=== PATIENT | female | born 1955 | race Two or more races ===

== ENCOUNTER 2021-11-10 21:51 | Emergency (ER) | payer OTHER ==
[~2021-11-10] VITALS: Ht 165.1 cm; Wt 61.2 kg
[2021-11-10] MEDS ORDERED: ONDANSETRON 4 MG/2 ML VIAL IV ONE (22:45)
[2021-11-10] MEDS ORDERED: IV NORMAL SALINE 1000 ML BAG IV ONE (22:45)
[2021-11-10] MEDS ORDERED: ONDANSETRON 4 MG/2 ML VIAL ONE (22:47)
--- NOTE | 2021-11-10 22:49 | NUR ---
Patient out of unit for ct scan via [place].
[2021-11-10 22:54] LABS: HEMATOCRIT 33.3 % (31.2-41.9); MEAN CORPUSCULAR HEMOGLOBIN 29.3 uug (24.7-32.8); MEAN CORPUSCULAR VOLUME 85.4 fL (75.5-95.3); PLATELET COUNT (AUTO) 265 K/uL (179-408)
[2021-11-10 23:00] LABS: CARBON DIOXIDE 24 mmol/L (21-32); CHLORIDE 98 mmol/L (98-107); CREATININE 0.7 mg/dL (0.6-1.3); GLUCOSE 96 mg/dL (74-106); POTASSIUM 3.1 mmol/L (3.5-5.1); UREA NITROGEN, BLOOD 8 mg/dL (7-18)
[2021-11-10 23:08] LABS: ALANINE AMINOTRANSFERASE 60 U/L (14-59); ALKALINE PHOSPHATASE 119 U/L (50-136); ASPARTATE AMINOTRANSFERASE 57 U/L (15-37); BILIRUBIN,DIRECT 0.1 mg/dL (0.0-0.2); BILIRUBIN,TOTAL 0.5 mg/dL (0.2-1.0); LIPASE 152 U/L (73-393); TOTAL PROTEIN, SERUM 7.2 g/dL (6.4-8.2)
--- NOTE | 2021-11-10 23:08 | NUR ---
Patient back from ct scan with no distress noted.
[2021-11-11 01:05] LABS: *BILIRUBIN,URIN NEGATIVE (NEGATIVE); *CLARITY,URINE CLEAR (CLEAR); *COLOR,URINE YELLOW (YELLOW); *KETONES,URINE NEGATIVE (NEGATIVE); *UROBILINOGEN,URINE 0.2 E.U./dl (NORMAL); LEUKOCYTE ESTERASE ,URINE NEGATIVE (NEGATIVE); NITRITE, URINE NEGATIVE (NEGATIVE); PH,URINE 7.5 (5.0-8.0); UGLUCOSE NEGATIVE (NEGATIVE)
[2021-11-11 01:12] LABS: *BLOOD, URINE TRACE LYSED (NEGATIVE)
[2021-11-11] MEDS ORDERED: LISI10TA29 PO (02:01)
[2021-11-11] MEDS ORDERED: CHEMO DRUG PO (02:01)
[2021-11-11] MEDS ORDERED: LETR2.5T PO (02:04)
[2021-11-11] MEDS ORDERED: ONDA4TAB5 PO (02:08)
--- NOTE | 2021-11-11 02:14 | NUR ---
IV removed. Catheter intact and site benign. Pressure and 4x4 gauze applied to site. No bleeding noted.
--- NOTE | 2021-11-11 02:14 | NUR ---
Patient does not wish to proceed with medical care recommended by Dr. Cunningham ). Patient given information related to possible complications, up to and including , which could occur as a result of leaving the hospital at this time. Patient verbalizes understanding of risks involved due to leaving against medical advice. Patient has signed AMA form. Patient states she will f/u with PMD this AM. Patient's son will take patient home.
[2021-11-11 02:27] VITALS: BP 138/78
[2021-11-11 06:43] LABS: BACTERIA,URINE NONE SEEN /HPF (NONE SEEN); RBC,URINE 0-3 /HPF (0-3); SQUAMOUS EPITHELIAL CELL,UR FEW /HPF (NONE SEEN); WBC,URINE 0-3 /HPF (0-3)
== END 2021-11-11 02:28 | disposition left against medical advice (07) ==
LOC: ER 22:30
DX: D49.6 Neoplasm of unspecified behavior of brain (principal); R11.2 Nausea with vomiting, unspecified; R53.1 Weakness; C50.912 Malignant neoplasm of unspecified site of left female breast; Z92.3 Personal history of irradiation; J01.00 Acute maxillary sinusitis, unspecified; Z20.822 Contact with and (suspected) exposure to COVID-19; Z90.49 Acquired absence of other specified parts of digestive tract; R94.31 Abnormal electrocardiogram [ECG] [EKG]; K44.9 Diaphragmatic hernia without obstruction or gangrene; I31.3 Pericardial effusion (noninflammatory); D17.71 Benign lipomatous neoplasm of kidney
CPT/HCPCS: 36415 ×2; 70450; 71045; 74176; 80048; 80076; 81001; 83690; 84484 ×2; 85025; 85730; 87426; 93005; 96361; 96374; 99285; J2405; J7040; A4663